=== PATIENT | female | born 1955 | race Caucasian/White ===

== ENCOUNTER → 2020-12-06 15:28 | Outpatient (BNVA) | payer OTHER, SELFPAY | PROVIDERS: PCP Family Medicine ==

== ENCOUNTER 2022-12-16 10:08 | Outpatient (AMB) | payer OTHER, SELFPAY ==
--- NOTE | 2022-12-16 10:19 | MHC.OFFVIS ---
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 Greer. She presents to the office today for follow-up of her longstanding history of nephrolithiasis. In discussion with the patient today she reports to be doing and feeling well. Recent renal imaging results reviewed with the patient today. Right kidney with at least 2 calculi in the right kidney measuring up to 1.3 cm in the upper pole. 3.1 cm simple cyst at the upper pole of the right kidney. No suspicious mass seen. Left kidney with no hydronephrosis. 6 mm calculus at the upper pole of the left kidney. Additional echogenic foci may resents smaller calculi. No suspicious mass seen. In office urinalysis results reviewed with the patient today. 3+ leukocytes negative nitrates. Patient denies any UTI like symptoms. She denies any bothersome urinary issues at this time. When asked she denies urinary urgency, urinary frequency, incontinence, nocturia, hematuria, dysuria, foul smelling urine, changes to urinary stream, flank pain, fever, and or chills. She is happy with her current voiding parameters. Discussed obtaining CT KUB for further assessment evaluation. Discussed possible near future surgical intervention with ureteroscopy verses ESWL. However, will obtain CT KUB for further assessment evaluation. When asked patient does report many years ago having surgical procedure regarding renal calculi. She otherwise denies any other issues or concerns at this time. When asked she does report to be drinking plenty of water daily and is compliant with vitamin B6 as prescribed. [facility] Medical History Calculus of kidney Review of Systems Const All systems reviewed & are unremarkable except as noted in HPI and below Reports as per HPI Eyes Reports no additional complaints ENT Reports no additional complaints Card Reports no additional complaints Resp Reports no additional complaints GI Reports no additional complaints Reports as per HPI Musc Reports no additional complaints Neuro Reports no additional complaints Psych Reports no additional complaints Endo Reports no additional complaints Herman/Lymph Reports no additional complaints Aller/Immun Reports no additional complaints Physical Exam Const General: cooperative, healthy appearing, comfortable, no acute distress, well developed, alert and awake Orientation/consciousness: patient oriented x3 Limitations: no limitations HEENT Head: Yes normal to inspection, Yes normocephalic and Yes atraumatic Ears: hearing grossly normal bilaterally Eyes General: appearance normal, both eyes and all related structures Neck Neck: Yes normal visual inspection and Yes trachea midline Chest Chest palpation & inspection: normal inspection of the chest Resp Effort & Inspection: normal respiratory effort and able to speak in complete sentences Cardio Rate: regular rate GI Inspection: Yes normal to inspection General: Yes no CVA tenderness Back/Spine/Pelvis Back: no CVA tenderness Skin General skin exam: no rashes or lesions noted Neuro General: patient oriented x3 Extrem General: Yes normal to inspection Psych Appearance: grossly normal and well kempt Mental Status: mental status grossly normal Speech and movement: Normal speech and movement present and Clear speech present Affect: normal affect Attitude: cooperative Thought process: Normal thought process present Thought content: Normal thought content present Insight: Good insight present (Psych) Judgement: Good judgement present (Psych) Results AMB Urinalysis, Automated UA Leukoctes 500 Diego/uL Last Edit by [employer] on 12/16/22 10:41 UA Nitrite Last Edit by [employer] on 12/16/22 10:41 UA Urobilinogen 0.2 mg/dL Last Edit by [employer] on 12/16/22 10:41 UA Protein 0 mg/dL Last Edit by [employer] on 12/16/22 10:41 UA pH 7.0 Last Edit by [employer] on 12/16/22 10:41 UA Blood 0 Khoa/uL Last Edit by [employer] on 12/16/22 10:41 UA Specific [place] 1.015 Last Edit by [employer] on 12/16/22 10:41 UA Ketone Negative Last Edit by [employer] on 12/16/22 10:41 UA Bilirubin 0 mg/dL Last Edit by Bony Barraza on 12/16/22 10:41 UA Glucose 0 mg/dL Last Edit by Bony Barraza on 12/16/22 10:41 Results Reviewed Results Reviewed: Laboratory Last Values Urine pH (Auto) 7.0 12/16/22 10:29 Specific [place] (Auto) 1.015 12/16/22 10:29 Urine Protein (Auto) 0 mg/dL 12/16/22 10:29 Glucose (UA)(Auto) 0 mg/dL 12/16/22 10:29 Urine Ketones (Auto) Negative 12/16/22 10:29 Urine Blood (Auto) 0 Khoa/uL 12/16/22 10:29 Urine Bilirubin (Auto) 0 mg/dL 12/16/22 10:29 Urine Urobilinogen (Auto) 0.2 mg/dL 12/16/22 10:29 Leukocyte Esterase (Auto) 500 Diego/uL 12/16/22 10:29 Assessment & Plan Assessment & Plan (1) Calculus of kidney: Code(s): N20.0 - Calculus of kidney Plan In office urinalysis results reviewed with the patient today; as noted above; will send for urine culture. Recent renal imaging results reviewed with the patient today; as noted above. Patient denies any bothersome urinary issues or concerns at this time. Patient denies any UTI like symptoms at this time. Will obtain CT KUB for further assessment evaluation. Discussed possible near future surgical intervention regarding renal calculi Continue drinking plenty of water daily. Continue vitamin B6 as prescribed. Follow-up in 2-4 weeks with imaging to be completed prior; or sooner with any issues, concerns, and or questions. Orders: Orders CT kidney stone Today N20.0 - Calculus of kidney AMB Urinalysis Automated Today Z13.9 - Encounter for screening, unspecified Urine Culture Today N20.0 - Calculus of kidney Patient Instructions: The patient had an opportunity to ask questions regarding the treatment plan. All questions were answered. Physical exam, labs, and imaging were discussed and reviewed in detail. As well as risks, benefits, and discussion of treatment choices. No major barriers to understanding were identified. The patient expressed understanding and agreement with the above treatment plan. The patient was made aware they should contact our office by phone for worsening of their current condition, the appearance of new symptoms, or with any questions or concerns. Compliance is encouraged with any medications and follow up testing that is ordered. It is a privilege to be allowed the opportunity to participate in? your urological care.? Again, if you have any questions or concerns If you have any questions or concerns please do not hesitate to contact me. The office is [phone]. This note is constructed using voice recognition software. While every effort has been made to ensure accuracy stud driver errors may have been included. Yours sincerely, BRANDIE Michelle Coding Level of Care Code Est Pt Level 3 (86885) Diagnoses Calculus of kidney N20.0
== END 2022-12-16 11:18 | disposition home or self-care (01) ==
PROVIDERS: PCP Family Medicine; Visit Provider Nurse Practitioner Family
DX: N20.0 Calculus of kidney (principal)
CPT/HCPCS: 99213

== ENCOUNTER 2022-12-16 10:08 | Outpatient (REF) | payer OTHER, SELFPAY | END 2022-12-16 10:09 | disposition home or self-care (01) | LOC: HO.LNP 10:08 | PROVIDERS: PCP Family Medicine; Visit Provider Nurse Practitioner Family | DX: N20.0 Calculus of kidney (principal) | CPT/HCPCS: 81003; 87086 ==

== ENCOUNTER 2023-01-14 12:44 | Outpatient (REF) | payer OTHER, SELFPAY ==
--- NOTE | ~2023-01-14 | CT_ITS ---
EXAMINATION: CT ABDOMEN AND PELVIS WITHOUT CONTRAST CLINICAL INFORMATION: Renal calculus. COMPARISON: None available. TECHNIQUE: Multidetector volumetric imaging was performed from the superior aspect of the liver through the pubic symphysis. Sagittal and coronal reformatted images were obtained on the technologist's workstation. This CT examination was performed using dose optimization techniques as appropriate, variously including the following: *Automated exposure control *Adjustment of mA and/or kV according to patient size (this includes techniques or standardized protocols for targeted exams where dose is matched to indication/reason for exam; i.e. extremities or head) *Use of iterative reconstruction technique DLP: 487 mGy-cm FINDINGS: LUNG BASES: The visualized lung bases are unremarkable. LIVER, GALLBLADDER, AND BILIARY TREE: The liver is normal in size, shape, and attenuation. No focal hepatic lesion or biliary ductal dilatation is present. The gallbladder is unremarkable, with no evidence of radiopaque gallstones, gallbladder wall thickening, or obvious pericholecystic inflammatory changes. PANCREAS: Unremarkable. SPLEEN: Unremarkable. ADRENAL GLANDS: Unremarkable. KIDNEYS AND URETERS: The kidneys are normal in size, shape, and attenuation. No perinephric stranding. At the upper pole of the right kidney (3:21), a 2.7 cm benign, simple cyst is seen, for which no imaging follow-up is recommended. At the upper pole of the right kidney (3:21), a 1.3 cm nonobstructing calculus is seen. At the interpolar right kidney (3:24), a 1 mm nonobstructing calculus is seen. At the interpolar left kidney (3:23), an 8 mm nonobstructing calculus is seen. At the lower pole of the left kidney (3:32), a 5 mm nonobstructing calculus is seen. BLADDER: Unremarkable. GASTROINTESTINAL TRACT: The small and large bowel are unremarkable. The appendix is unremarkable. ABDOMINAL WALL: There is a small fat-containing umbilical hernia. LYMPH NODES: Normal. VASCULAR: There is moderate aortoiliac atherosclerotic calcification. No abdominal aortic aneurysm is seen. PELVIC VISCERA: The uterus and adnexa are unremarkable. OSSEOUS STRUCTURES: There is moderately severe degenerative disc disease at L5-S1. No acute or aggressive osseous finding is noted. CT/CT kidney stone IMPRESSION: 1. There are nonobstructing bilateral renal calculi, as detailed. No ureteric calculus or obstructive uropathy is seen. 2. There is moderately severe degenerative disc disease at L5-S1. Fleischner guidelines were followed. sonia
== END 2023-01-14 12:45 | disposition home or self-care (01) ==
LOC: HO.CT 12:44
PROVIDERS: Visit Provider Nurse Practitioner Family
DX: N20.0 Calculus of kidney (principal)
CPT/HCPCS: 74176

== ENCOUNTER 2023-01-21 14:48 | Outpatient (AMB) | payer OTHER, SELFPAY ==
--- NOTE | 2023-01-21 15:15 | MHC.OFFVIS ---
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 Greer. She presents to the office today for follow-up of her longstanding history of nephrolithiasis. In discussion with the patient today she reports to be doing and feeling well. Of note, patient was seen approximately 1 month ago at which time renal ultrasound results noted right kidney with at least 2 calculi in the right kidney measuring up to 1.3 cm in the upper pole. 3.1 cm simple cyst at the upper pole of the right kidney. No suspicious mass seen. Left kidney with no hydronephrosis. 6 mm calculus at the upper pole of the left kidney. Additional echogenic foci may resents smaller calculi. No suspicious mass seen. At which time a CT KUB was ordered for further assessment evaluation. These results reviewed with the patient today. At the upper pole of the right kidney, a 2.7 cm benign, simple cyst is seen, for which no imaging follow-up is recommended per radiology report. At the upper pole of the right kidney (3:21), a 1.3 cm nonobstructing calculus is seen. At the interpolar right kidney (3:24), a 1 mm nonobstructing calculus is seen. At the interpolar left kidney (3:23), an 8 mm nonobstructing calculus is seen. At the lower pole of the left kidney (3:32), a 5 mm nonobstructing calculus is seen. The bladder is unremarkable. In office urinalysis results reviewed with the patient today. 3+ leukocytes negative nitrates. Patient denies any UTI like symptoms. She denies any bothersome urinary issues at this time. When asked she denies urinary urgency, urinary frequency, incontinence, nocturia, hematuria, dysuria, foul smelling urine, changes to urinary stream, flank pain, fever, and or chills. She is happy with her current voiding parameters. Discussed surveillance monitoring of nephrolithiasis verses surgical intervention with ureteroscopy verses ESWL. Discussed at length risks versus benefits of surgical intervention versus surveillance monitoring. Discussed at length and educational information provided on ESWL verses ureteroscopy When asked patient does report many years ago having surgical procedure regarding renal calculi. She otherwise denies any other issues or concerns at this time. When asked she does report to be drinking plenty of water daily and is compliant with vitamin B6 as prescribed. [facility] Medical History Calculus of kidney Review of Systems Const All systems reviewed & are unremarkable except as noted in HPI and below Reports as per HPI Eyes Reports no additional complaints ENT Reports no additional complaints Card Reports no additional complaints Resp Reports no additional complaints GI Reports no additional complaints Reports as per HPI Musc Reports no additional complaints Neuro Reports no additional complaints Psych Reports no additional complaints Endo Reports no additional complaints Herman/Lymph Reports no additional complaints Aller/Immun Reports no additional complaints Physical Exam Const General: cooperative, healthy appearing, comfortable, no acute distress, well developed, alert and awake Orientation/consciousness: patient oriented x3 Limitations: no limitations HEENT Head: Yes normal to inspection, Yes normocephalic and Yes atraumatic Ears: hearing grossly normal bilaterally Eyes General: appearance normal, both eyes and all related structures Neck Neck: Yes normal visual inspection and Yes trachea midline Chest Chest palpation & inspection: normal inspection of the chest Resp Effort & Inspection: normal respiratory effort and able to speak in complete sentences Cardio Rate: regular rate GI Inspection: Yes normal to inspection General: Yes no CVA tenderness Back/Spine/Pelvis Back: no CVA tenderness Skin General skin exam: no rashes or lesions noted Neuro General: patient oriented x3 Extrem General: Yes normal to inspection Psych Appearance: grossly normal and well kempt Mental Status: mental status grossly normal Speech and movement: Normal speech and movement present and Clear speech present Affect: normal affect Attitude: cooperative Thought process: Normal thought process present Thought content: Normal thought content present Insight: Good insight present (Psych) Judgement: Good judgement present (Psych) Results AMB Urinalysis, Automated UA Leukoctes 500 Diego/uL Last Edit by Bony Barraza on 01/21/23 15:48 UA Nitrite Negative Last Edit by Bony Barraza on 01/21/23 15:48 UA Urobilinogen 0.2 mg/dL Last Edit by Bony Barraza on 01/21/23 15:48 UA Protein 0 mg/dL Last Edit by Bony Barraza on 01/21/23 15:48 UA pH 6.5 Last Edit by Bony Barraza on 01/21/23 15:48 UA Blood 0 Khoa/uL Last Edit by Bony Barraza on 01/21/23 15:48 UA Specific [place] 1.015 Last Edit by [email or web address] Barraza on 01/21/23 15:48 UA Ketone Negative Last Edit by [email or web address] Barraza on 01/21/23 15:48 UA Bilirubin 0 mg/dL Last Edit by Bony Barraza on 01/21/23 15:48 UA Glucose 0 mg/dL Last Edit by Bony Barraza on 01/21/23 15:48 Results Reviewed Results Reviewed: Laboratory Last Values Urine pH (Auto) 6.5 01/21/23 15:29 Specific [place] (Auto) 1.015 01/21/23 15:29 Urine Protein (Auto) 0 mg/dL 01/21/23 15:29 Glucose (UA)(Auto) 0 mg/dL 01/21/23 15:29 Urine Ketones (Auto) Negative 01/21/23 15:29 Urine Blood (Auto) 0 Khoa/uL 01/21/23 15:29 Urine Nitrite (Auto) Negative 01/21/23 15:29 Urine Bilirubin (Auto) 0 mg/dL 01/21/23 15:29 Urine Urobilinogen (Auto) 0.2 mg/dL 01/21/23 15:29 Leukocyte Esterase (Auto) 500 Diego/uL 01/21/23 15:29 Date of Service: 01/14/23 Procedure(s): CT kidney stone FINDINGS: LUNG BASES: The visualized lung bases are unremarkable. LIVER, GALLBLADDER, AND BILIARY TREE: The liver is normal in size, shape, and attenuation. No focal hepatic lesion or biliary ductal dilatation is present. The gallbladder is unremarkable, with no evidence of radiopaque gallstones, gallbladder wall thickening, or obvious pericholecystic inflammatory changes. PANCREAS: Unremarkable. SPLEEN: Unremarkable. ADRENAL GLANDS: Unremarkable. KIDNEYS AND URETERS: The kidneys are normal in size, shape, and attenuation. No perinephric stranding. At the upper pole of the right kidney (3:21), a 2.7 cm benign, simple cyst is seen, for which no imaging follow-up is recommended. At the upper pole of the right kidney (3:21), a 1.3 cm nonobstructing calculus is seen. At the interpolar right kidney (3:24), a 1 mm nonobstructing calculus is seen. At the interpolar left kidney (3:23), an 8 mm nonobstructing calculus is seen. At the lower pole of the left kidney (3:32), a 5 mm nonobstructing calculus is seen. BLADDER: Unremarkable. GASTROINTESTINAL TRACT: The small and large bowel are unremarkable. The appendix is unremarkable. ABDOMINAL WALL: There is a small fat-containing umbilical hernia. LYMPH NODES: Normal. VASCULAR: There is moderate aortoiliac atherosclerotic calcification. No abdominal aortic aneurysm is seen. PELVIC VISCERA: The uterus and adnexa are unremarkable. OSSEOUS STRUCTURES: There is moderately severe degenerative disc disease at L5-S1. No acute or aggressive osseous finding is noted. IMPRESSION: 1. There are nonobstructing bilateral renal calculi, as detailed. No ureteric calculus or obstructive uropathy is seen. 2. There is moderately severe degenerative disc disease at L5-S1. Assessment & Plan Assessment & Plan (1) Bilateral nephrolithiasis: Code(s): N20.0 - Calculus of kidney Plan: Ureteroscopy We discussed the nature of the decision and reasonable alternatives for performing ureteroscopy. Options such as medical therapy were discussed. Interventions include chemical dissolution, ESWL, ureteroscopy with laser lithotripsy and stent placement, PCNL. The relative uncertainties and benefits related to each alternate procedure were adequately discussed. General surgical risks including, but not limited to - pain, bleeding, infection, myocardial infarction, pulmonary embolus, deep vein thrombosis and cerebrovascular accident which may result in further hospitalization were discussed.? Full disclosure of the procedure as well as all major risks, benefits and complications were discussed including but not limited to damage to the urethra, bladder and kidney infection, damage to the ureter, stent migration or malposition, scarring to the renal pelvis, remnant stone fragments, subsequent stone passage with need for secondary procedures. The overall secondary procedure rate is approximately 10-15%.? The overall clearance rate is approximately 90-95%. Success of the procedure in the short-term does not necessarily guarantee that long-term success will be maintained. Suitable follow up will need to be maintained. The patient showed understanding of discussion and wishes to proceed with - cystoscopy, retrograde, ureteroscopy, possible lithotripsy/stone basketing and stent on the left side Plan In office urinalysis results reviewed with the patient today; 3+ leukocytes negative nitrates patient denies any UTI like symptoms at this time. Discussed, educated, and stressed the importance of drinking plenty of water daily. Continue vitamin B6 as discussed and prescribed. Discussed recent CT KUB results with the patient today; as noted above. Discussed surveillance monitoring versus further surgical intervention regarding bilateral nephrolithiasis noted on renal ultrasound as well as recent CT. Discussed at length risks and benefits of ureteroscopy versus ESWL; information provided Imaging reviewed with Dr. Kumar All questions were answered Will schedule for left-sided; cystoscopy, retrograde, ureteroscopy, possible lithotripsy/stone basketing and stent on the left side followed by right sided cystoscopy, retrograde, ureteroscopy, possible lithotripsy/stone basketing and stent on the right side Follow-up status post surgical intervention per Dr. Oliver orders; or sooner with any issues, concerns, and or questions. Orders: Orders AMB Urinalysis Automated Today Z13.9 - Encounter for screening, unspecified Patient Instructions: The patient had an opportunity to ask questions regarding the treatment plan. All questions were answered. Physical exam, labs, and imaging were discussed and reviewed in detail. As well as risks, benefits, and discussion of treatment choices. No major barriers to understanding were identified. The patient expressed understanding and agreement with the above treatment plan. The patient was made aware they should contact our office by phone for worsening of their current condition, the appearance of new symptoms, or with any questions or concerns. Compliance is encouraged with any medications and follow up testing that is ordered. It is a privilege to be allowed the opportunity to participate in? your urological care.? Again, if you have any questions or concerns If you have any questions or concerns please do not hesitate to contact me. The office is [phone]. This note is constructed using voice recognition software. While every effort has been made to ensure accuracy buttonhole marker errors may have been included. Yours sincerely, Patricia Vazquez, RULES EXAMINER-BC Coding Level of Care Code Est Pt Level 4 (58343) Diagnoses Bilateral nephrolithiasis N20.0
== END 2023-01-21 16:15 | disposition home or self-care (01) ==
PROVIDERS: PCP Family Medicine; Visit Provider Nurse Practitioner Family
DX: N20.0 Calculus of kidney (principal)
CPT/HCPCS: 99214

== ENCOUNTER → 2023-01-21 14:48 | Outpatient (BNVA) | payer OTHER, SELFPAY | PROVIDERS: PCP Family Medicine; Visit Provider Nurse Practitioner Family | DX: N20.0 Calculus of kidney (principal) | CPT/HCPCS: 81003 ==